=== PATIENT | male | born 2005 | race Caucasian/White ===

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

== ENCOUNTER 2024-05-10 20:50 | Outpatient (REF) | payer MEDICAID, SELFPAY ==
[2024-05-10 22:19] LABS: ALT 34 U/L (16-63); AST 24 U/L (15-37); Albumin 4.4 g/dL (3.4-5.0); Alkaline Phosphatase 75 U/L (46-116); BUN 13 mg/dL (7-18); Bilirubin, Total 0.5 mg/dL (0.2-1.0); CREATININE 1.1 mg/dL (0.70-1.30); Calcium 9.7 mg/dL (8.5-10.1); Calculated LDL 97 mg/dL (<100); Chloride 103 mmol/L (98-107); Cholesterol 170 mg/dL (<200); Estimated GFR 97.95 (mL/min/1.73m2); Glucose 92 mg/dL (74-106); HDL Cholesterol 47 mg/dL (40-60); Magnesium 2.1 mg/dL (1.8-2.4); Potassium 3.8 mmol/L (3.5-5.1); Sodium 139 mmol/L (136-145); TSH (W/Ref FT4) 1.31 uIU/mL (0.36-3.74); Total Protein 8.1 g/dL (6.4-8.2); Triglyceride 134 mg/dL (<150)
== END 2024-05-10 20:51 | disposition home or self-care (01) ==
LOC: LBN 20:50
PROVIDERS: PCP Nurse Practitioner Family; Visit Provider Family Medicine
DX: E66.9 Obesity, unspecified (principal)
CPT/HCPCS: 80053; 80061; 83735; 84443